=== PATIENT | male | born 1975 | race Caucasian/White ===

== ENCOUNTER 2022-03-19 08:40 | Outpatient (CLI) | payer OTHER | END 2022-03-19 08:43 | disposition home or self-care (01) | LOC: RX STUDY 08:40 | PROVIDERS: ATTEND Internal Medicine Gastroenterology | DX: R13.14 Dysphagia, pharyngoesophageal phase (principal); K22.0 Achalasia of cardia ==

== ENCOUNTER 2022-07-08 07:15 | Outpatient (CLI) | payer OTHER | END 2022-07-08 07:29 | disposition home or self-care (01) | LOC: TOM 07:15 | PROVIDERS: ATTEND Internal Medicine Gastroenterology | DX: K22.0 Achalasia of cardia (principal); Q39.3 Congenital stenosis and stricture of esophagus ==